=== PATIENT | male | born 1935 | race Caucasian/White ===

== ENCOUNTER 2017-06-03 15:30 | Emergency (ER) | payer MEDICARE, OTHER ==
[~2017-06-03 15:30] MED LIST: ACET-171 PO; AMIO100T4 PO; ASPI-973 PO; CILO100T2 PO; CRES20T PO; INDO25CA PO; ISOS60TA2 PO; LEVO50TA83 PO; LOSA25TA21 PO; NITR4.9S5 SL; WARF3TAB7 PO
[2017-06-03 15:40] VITALS: BP 146/65; PULSE 61; RESP 31; O2SAT 94
--- NOTE | 2017-06-03 15:53 | ED.REPORT ---
HPI-Chest Pain Under 40 Date of Service Jun 03, 2017 ED Provider: Dr. Keene Pt is an 82 y/o male anticoagulated on Warfarin w/ a hx of paroxysmal a-fib, CAD and ND, HTN, HLD, CKD, dementia, presenting to the ED via EMS c/o sudden onset low substernal CP and epigastric pain which began at about 14:00 today. While the patient was performing yard work outside he developed sudden onset sharp pain with associated shortness of breath and pleuritic CP prompting his to call EMS. He was given 324 mg ASA and nitro x2 on route and he does not know if these helped. At time of arrival his pain is diminished but he is still experiencing dyspnea. He does have a history of ND which did not feel similar to today's symptoms. Pt denies N/V/D. Field ECG x4 are reviewed, they show NSR and no ischemic change. Has not had similar pain in the past. History is difficult to obtain secondary to dementia. Nursing Notes Chief Complaint: Chest Pain Nursing Notes Reviewed: Yes Allergies: Coded Allergies: atorvastatin (Verified Allergy, Intermediate, sore muscles, 12/12/12) niacin (Verified Allergy, Intermediate, hot flashes, 12/12/12) metformin (Verified Allergy, Unknown, 05/11/16) colchicine (Verified Adverse Reaction, Severe, Diarrhea, 12/12/12) Scheduled Amiodarone (Amiodarone) 100 Mg Tablet 50 MG PO DAILY Aspirin (Aspirin) 81 Mg Tablet 81 MG PO DAILY Cilostazol (Cilostazol) 100 Mg Tablet 100 MG PO BID Isosorbide MN ER (Isosorbide MN ER) 60 Mg Tab.er.24h 60 MG PO DAILY Levothyroxine (Synthroid) 50 Mcg Tablet 50 MCG PO DAILY Losartan Potassium (Losartan Potassium) 25 Mg Tablet 25 MG PO DAILY Pantoprazole DR (Protonix) 20 Mg Tablet 20 MG PO BID Rosuvastatin Calcium (Crestor) 20 Mg Tablet 20 MG PO DAILY Warfarin Sodium (Warfarin Sodium) 3 Mg Tablet 3 MG PO DIRECTED Scheduled PRN Acetaminophen (Acetaminophen) 500 Mg Tablet 500 MG PO Q6H PRN PRN For Pain Indomethacin (Indomethacin) 25 Mg Capsule 25 MG PO TID PRN PRN gout Nitroglycerin Zanoni (Nitroglycerin Zanoni) 4.9 Gm Zanoni [address] Q5MIN PRN PRN For Chest Pain General Time Seen by MD: 15:45 Chief Complaint Chest pain Hx Obtained From: Patient, EMS Arrived By: Ambulance Sudden in Onset?: Yes Onset Occurred: 1 - 4 hours ago Symptom Duration: Since onset Location: : Substernal Quality: Painful, Sharp Severity: Current: Moderate Severity: Maximum: Severe Similar Sx Previous: No Past Medical History Past Medical History Notes: Survey Questionnaire Designer: Dr. Carter Past Medical History Paroxysmal Atrial fibrillation - On Warfarin Coronary artery disease ND February 1993 at [facility] in [facility] Hypertension Hyperlipidemia Lumbar spine stenosis - C4-C5 ruptured disc Arthritis Hx skin melanoma, squamas cell, basal cell Hx hernia Hx pneumonia Peripheral arterial disease with claudication Hypothyroidism History of gout History of impaired renal sufficiency History of mild asthma Past Surgical History Appendectomy PTCA - 1992 Back Cardiac stenting 1-2 cardiac catheterizations Pilonidal cyst History of bilateral laser keratotomy Status post bilateral lower extremity angiography May 2016 with heavily calcified distal abdominal aorta and iliac arteries, but no significant stenosis Patient is status post a right common iliac artery stent and 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 Physical Exam Initial Vital Signs Vital Signs (First) Date Time Temp Pulse Resp B/P Pulse Ox O2 Delivery O2 Flow Rate FiO2 06/03/17 15:40 36.3 61 31 146/65 94 Room Air 06/03/17 16:12 2 Initial VS: Reviewed, Vital signs abnormal Head / Eyes: Atraumatic, Normocephalic ENT: Mucous membranes moist, Conjunctiva normal Neck: Full range of motion Extremities: Vascular intact, Neuro intact, No swelling Skin: Warm, Dry, No cyanosis Neurologic: Alert, Oriented, Nonfocal Psychiatric: Mood/affect normal, Behavior normal, Normal thought content General/Constitutional: Awake, Alert, Cooperative, Not toxic appearing Respiratory / Chest: Breath sounds NL, Breath sounds = bilat, No rales, No rhonchi, No wheezing, No stridor Tachypneic Cardiovascular: Heart rate NL, Regular rhythm, Heart sounds NL, No gallop, No murmurs, No rubs Abdomen: Atraumatic, Soft, No guarding, No rebound, BS normoactive, No distention RUQ tenderness with positive Martino's sign Tender LUQ Interpretation & Diagnostics US ABDOMEN: IMPRESSION: The patient had E. in approximately 3 hours prior to the ultrasound study and this likely explains the mild gallbladder wall thickening just above the upper limits of normal at 3.4 mm (upper limits of normal is 3.0 mm in a fasting patient). No biliary distention is present. Hepatic and renal cortical cyst findings as discussed, requiring no followup. Poor visualization of the pelvic arterial vasculature due to overlying bowel gas. Depending on the clinical status followup by CT scanning could be obtained. Dictated by: Rico Montgomery M.D. on 06/03/2017 at 17:30 Approved by: Rico Montgomery M.D. on 06/03/2017 at 17:34 Lab Results Interpretation Result Diagram: 06/03/17 1656 06/03/17 1656 Test 06/03/17 16:56 06/03/17 17:22 06/03/17 19:14 White Blood Count 4.0th/mm3 (3.8-10.1) Red Blood Count 3.15mil/mm3 (4.40-5.80) Hemoglobin 10.0g/dL (13.8-17.2) Hematocrit 29.6% (41.0-50.0) Mean Corpuscular Volume 94.0fL (81-100) Mean Corpuscular Hemoglobin 31.7pg (27.0-35.0) Mean Corpuscular Hemoglobin Concent 33.8% (32.0-37.0) Red Cell Distribution Width 12.7% (12.3-15.4) Platelet Count 165bil/L (150-400) Neutrophils (%) (Auto) 70.3% (40-74) Lymphocytes (%) (Auto) 17.3% (14-46) Monocytes (%) (Auto) 8.0% (4-12) Eosinophils (%) (Auto) 3.8% (0-5) Basophils (%) (Auto) 0.3% (0-3) Prothrombin Time 26.9sec (8.1-12.5) Prothromb Time International Ratio 2.47ratio D-Dimer < 0.5mg/L FEU (<0.50) Sodium Level 143mEq/L (134-144) Potassium Level 3.9mEq/L (3.5-5.2) Chloride Level 109mEq/L (97-108) Carbon Dioxide Level 19mmol/L (18-29) Blood Urea Nitrogen 32mg/dL (8-27) Creatinine 1.72mg/dL (0.76-1.27) Estimat Glomerular Filtration Rate 41mL/min (>59) Glucose Level 114mg/dL (60-99) Calcium Level 8.7mg/dL (8.5-10.1) Magnesium Level 2.1mg/dL (1.6-2.6) Total Bilirubin 0.3mg/dL (0.0-1.2) Aspartate Amino Transf (AST/SGOT) 27U/L (0-50) Alanine Aminotransferase (ALT/SGPT) 12U/L (0-44) Alkaline Phosphatase 50U/L (25-160) Total Protein 6.0g/dL (6.4-8.4) Albumin 3.8g/dL (3.4-5.0) Lipase 42U/L (13-60) Hold Penn Top Tube Received (Received) Troponin T < 0.010ug/L (0.0-0.011) ECG Interpretation ECG Interpretation: Review of field EKG reveals sinus rhythm with no ST elevation. First tracing shows some lateral ST depression Time: 15:45 Interpreted by: ED physician ECG Interpretation: Sinus rhythm rate 55 Time: 15:45 Interpreted by: ED physician Normal ECG Interpretation: No acute ischemic changes X-Ray Chest Interpretation Chest Xray Interpretation: IMPRESSION: Trace left basilar radiopacities. Differential considerations include atelectasis, aspiration, and infection. Dictated by: Lindsey Silva M.D. on 06/03/2017 at 15:54 Approved by: Lindsey Silva M.D. on 06/03/2017 at 15:55 View: Portable, 1 view Interpretation / Wet Read by: Interpret - Radiologist Re-Eval/Medical Decision Source of Hx: Old records, EMS Re-Evaluation/Progress #1: Time of Eval: 18:11 Re-Evaluation/Progress Note: Pt rechecked. Comfortable, NAD, respirations normal, no pain, VSS. Discussed lab and imaging findings. He has been passing gas and having normal bowel movements. Abdomen is now non-tender. Discussed admission vs discharge. He would prefer to be discharged and agrees with plan for rpt trop and dc if normal. Re-Evaluation/Progress #2: Time of Eval: 20:07 Re-Evaluation/Progress Note: Pt rechecked. Discussed negative rpt trop. Would still like to be discharged. Informed pt of plan for discharge. Pt understands and agrees with plan for discharge. F/U instructions and RTER warnings given. All questions addressed. Counseled Regarding: Diagnosis, Lab results, Need for follow-up, When/why to return to ED Discharge & Departure Primary Impression: Epigastric abdominal pain Disposition: Home Discharge Condition All VS Reviewed: Yes Condition: Stable Patient Instructions: Esophageal Spasm (ED) Additional Instructions: ED evaluation today included interview exam labs ECG, abdominal ultrasound and chest x-ray. We observed in the ED and repeated blood work to exclude heart muscle damage. We did not find evidence for an acute heart problem tonight. Pain was a bit lower than chest so gallbladder and liver were checked also . Follow up with your primary care doctor shraddha for a re-check. Protonix 20mg twice a day. Return to ED for trouble breathing, recurrent pain fevers or frequent vomiting. Referrals: [facility] (PCP) Sesar Carter MD (Family) Scribe Attestation Portions of this note were transcribed by Shiv Crabtree. I, Dr. Keene personally performed the history, physical exam and medical decision-making; I reviewed and confirmed the accuracy of the information in the transcribed note. copies to: Sesar Carter MD; ANDALUSIA HEALTHRobe Friend MD Jun 03, 2017 15:53 SHIV CRABTREE Jun 03, 2017 15:55
--- NOTE | 2017-06-03 15:56 | DRSVH ---
PROCEDURE: X-RAY CHEST ONE VIEW, PORTABLE ([id number]) INDICATIONS: cp TECHNIQUE: One view of the chest was acquired. COMPARISON: Located Within [facility], CR, XR CHEST 1VW (PORTABLE), 09/21/2016, 17:31. FINDINGS: Surgical changes and devices: None. Lungs and pleura: Mild streaky opacities are present at the left lung base, new when compared with th e prior plain film dated 09/21/16. No pleural effusion or pneumothorax. Mediastinum: Mediastinal contours appear normal. Heart size is normal. The aortic arch is calcifie d. Bones and chest wall: No suspicious bony lesions. Overlying soft tissues appear unremarkable. IMPRESSION: Trace left basilar radiopacities. Differential considerations include atelectasis, aspira tion, and infection. Dictated by: Lindsey Silva M.D. on 06/03/2017 at 15:54 Approved by: Lindsey Silva M.D. on 06/03/2017 at 15:55
[2017-06-03 16:12] VITALS: BP 137/54; PULSE 46; RESP 18; O2SAT 100
[2017-06-03 16:57] VITALS: BP 152/73; PULSE 51; RESP 16; O2SAT 96
[2017-06-03 17:00] LABS: BASOPHILS % (AUTO) 0.3 % (0-3); EOSINOPHILS % (AUTO) 3.8 % (0-5); Mean Corpuscular Hemoglobin 31.7 pg (27.0-35.0); NEUTROPHILS % (AUTO) 70.3 % (40-74); Platelet Count 165 bil/L (150-400)
[2017-06-03 17:22] LABS: TROPONIN T < 0.010 ug/L (0.0-0.011)
[2017-06-03 17:25] LABS: D-Dimer < 0.5 mg/L FEU (<0.50); INR 2.47 ratio
[2017-06-03 17:32] LABS: Lipase 42 U/L (13-60); Magnesium 2.1 mg/dL (1.6-2.6)
--- NOTE | 2017-06-03 17:36 | DRSVH ---
PROCEDURE: US ABDOMEN ([id number]) INDICATIONS: epigastric pain, possible gallbladder disease TECHNIQUE: Real-time scanning was performed of the abdominal and retroperitoneal organs, with image documentatio n. COMPARISON: None. FINDINGS: Liver: Liver is normal in size and homogeneous in echotexture. There is a 3.3 x 1.8 x 3.2 cm minimal ly complex right hepatic subcapsular cyst, also seen by prior CT scanning. Gallbladder: The gallbladder wall is somewhat thickened at 3.4 mm but the patient had eaten 3 hours prior and therefore the gallbladder wall prominence may simply represent contraction due to bleeding. The gallbladder appears free of stones, and there is no pericholecystic free fluid or sonographic M urphy's sign. Biliary ducts: Intrahepatic bile ducts are non-dilated. Extrahepatic bile duct caliber measures 2.6 mm. Normal is 6-7 mm or less in diameter, or 10 mm or less post-cholecystectomy. Pancreas: Visualized portions of the pancreas are sonographically normal. Spleen: Spleen is normal in size and homogeneous in echotexture. Kidneys: Kidneys are normal in size and echotexture. Right kidney measures 9.9 cm long; left kidney measures 10.6 cm long. No hydronephrosis or nephrolithiasis. No solid masses. There is a 1 cm lef t renal cortical cyst, mid kidney level. This was also present on prior CT scanning as a hyperdense cyst. Aorta: Visualized aorta is normal in caliber at less than 3 cm. Iliacs: Proximal common iliac arteries are normal in caliber at less than 2.5 cm. IVC: Not seen due to bowel gas. Miscellaneous: No free abdominal fluid. IMPRESSION: The patient had E. in approximately 3 hours prior to the ultrasound study and this likel y explains the mild gallbladder wall thickening just above the upper limits of normal at 3.4 mm (uppe r limits of normal is 3.0 mm in a fasting patient). No biliary distention is present. Hepatic and r enal cortical cyst findings as discussed, requiring no followup. Poor visualization of the pelvic ar terial vasculature due to overlying bowel gas. Depending on the clinical status followup by CT scann ing could be obtained. Dictated by: Rico Montgomery M.D. on 06/03/2017 at 17:30 Approved by: Rico Montgomery M.D. on 06/03/2017 at 17:34
[2017-06-03] MEDS ORDERED: PANT20T PO (20:43)
[2017-06-03] MEDS ORDERED: Pantoprazole 20 mg ER24 Tablet PO ONE (20:45)
[2017-06-03 22:14] VITALS: BP 132/74; PULSE 82; RESP 18; O2SAT 97
== END 2017-06-03 21:54 | disposition home or self-care (01) ==
LOC: SED 15:30
DX: R10.13 Epigastric pain (principal); I48.91 Unspecified atrial fibrillation; I25.10 Atherosclerotic heart disease of native coronary artery without angina pectoris; I25.2 Old myocardial infarction; I12.0 Hypertensive chronic kidney disease with stage 5 chronic kidney disease or end stage renal disease; F03.90 Unspecified dementia, unspecified severity, without behavioral disturbance, psychotic disturbance, mood disturbance, and anxiety; E78.5 Hyperlipidemia, unspecified; E03.9 Hypothyroidism, unspecified; J45.909 Unspecified asthma, uncomplicated; Z87.891 Personal history of nicotine dependence; Z79.01 Long term (current) use of anticoagulants; Z87.01 Personal history of pneumonia (recurrent); Z95.5 Presence of coronary angioplasty implant and graft; Z88.8 Allergy status to other drugs, medicaments and biological substances; Z79.82 Long term (current) use of aspirin
CPT/HCPCS: 36415; 71010; 76700; 80053; 82948; 83690; 83735; 84484; 85025; 85378; 85610; 93005; 96374; 99285; J2060